=== PATIENT | female | born 1990 | race African-American/Black ===

== ENCOUNTER 2023-12-23 17:35 | Emergency (ER) | payer OTHER ==
[2023-12-23 20:28] LABS: BILIRUBIN,URINE NEGATIVE (NEGATIVE); GLUCOSE, URINE (UA) NEGATIVE (NEGATIVE); KETONES,URINE (UA) TRACE mg/dL (NEGATIVE); LEUKOCYTE ESTERASE, URINE NEGATIVE (NEGATIVE); NITRITE,URINE NEGATIVE (NEGATIVE); OCCULT BLOOD,URINE NEGATIVE (NEGATIVE); PH,URINE 5.5 PH (5.0-7.5); PROTEIN,URINE NEGATIVE (NEGATIVE); UROBILINOGEN,URINE 0.2 (NORMAL) E.U./dL (NORMAL)
[2023-12-23 20:30] LABS: CLARITY,URINE CLEAR (CLEAR)
[2023-12-23 20:31] LABS: HCG UR QUAL NEGATIVE
[2023-12-23] MEDS: LIDOCAINE PATCH 5% TOP STA (20:32)
[2023-12-23] MEDS: CYCLOBENZAPRINE 10 MG Prepack 2 PO PRN (20:32)
--- NOTE | 2023-12-23 20:38 | ED Physician Documentation ---
PD HPI BACK PAIN - Stated complaint Stated Complaint: R SIDE BACK PX - Chief complaint Chief Complaint: Back Pain - History obtained from History obtained from: Patient - Additional information Additional information: Patient is a 33-year-old female presenting for evaluation of right flank pain that has been present for 1 week. Patient states that she moved in a certain way and then suddenly felt pain in the back. It has worsened. She has been taking tizanidine and ibuprofen and Tylenol without significant improvement after being evaluated at the [facility] a few days ago. 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 It is worse with certain movements. No bowel or bladder incontinence. No numbness or weakness. No pain into the legs. Review of Systems Constitutional: denies: Fever Cardiac: denies: Chest pain / pressure Respiratory: denies: Dyspnea GI: denies: Abdominal Pain Musculoskeletal: reports: Back pain PD PAST MEDICAL HISTORY - Past Medical History Past Medical History: No Cardiovascular: None Respiratory: None Neuro: None Endocrine/Autoimmune: None GI: None RN INVASIVE: None : None HEENT: None Psych: None Musculoskeletal: None Derm: None - Past Surgical History Past Surgical History: Yes Ortho: ACL reconstruction - Present Medications Home Medications: Ambulatory Orders Medication Instructions Recorded Confirmed Cyclobenzaprine [Flexeril] 10 mg PO TID PRN #20 tablet 12/23/23 Lidocaine Patch 5% [Lidoderm Patch] 1 patch TOP DAILY PRN #10 patch 12/23/23 - Allergies Allergies/Adverse Reactions: Allergies Allergy/AdvReac Type Severity Reaction Status Date / Time Penicillins Allergy Hives Verified 12/23/23 17:53 hydrocodone AdvReac Headache Verified 12/23/23 17:53 - Social History Does the pt smoke?: No Smoking Status: Never smoker ETOH Use: Beer - Immunizations Immunizations are current?: Yes PD ED PE NORMAL - General General: Alert and oriented X 3, No acute distress, Well developed/nourished - HEENT HEENT: Atraumatic - Neck Neck: Supple, no meningeal sign - Cardiac Cardiac: RRR, Strong equal pulses - Respiratory Respiratory: No respiratory distress, Clear bilaterally - Abdomen Abdomen: Normal bowel sounds, Soft, Non tender, Non distended - Back Back: No spinal TTP, Other (Right paralumbar tenderness to palpation) - Extremities Extremities: No deformity, Normal ROM s pain, No calf tenderness / cord - Neuro Neuro: Alert and oriented X 3, No motor deficit, No sensory deficit, Normal speech Results - Vitals Vitals: Vital Signs - 24 hr 12/23/23 12/23/23 17:45 20:45 Temperature 36.3 C L 36.5 C Heart Rate 85 82 Respiratory 18 16 Rate Blood Pressure 126/79 124/76 O2 Saturation 97 98 Oxygen O2 Source Room air - Labs Labs: Laboratory Tests 12/23/23 20:23 Urine Color LIGHT YELLOW Urine Clarity CLEAR Urine pH 5.5 Ur Specific [place] >=1.030 H Urine Protein NEGATIVE Urine Glucose (UA) NEGATIVE Urine Ketones TRACE Urine Occult Blood NEGATIVE Urine Nitrite NEGATIVE Urine Bilirubin NEGATIVE Urine Urobilinogen 0.2 (NORMAL) Ur Leukocyte Esterase NEGATIVE Ur Microscopic Review NOT INDICATED Urine Culture Comments NOT INDICATED Urine HCG, Qual NEGATIVE PD Medical Decision Making - ED course ED course: Patient is a 33-year-old female presenting with atraumatic right lower back pain. No radiation to the abdomen. Vital signs are stable. No red flag signs or symptoms in regards to her back pain. She is ambulatory. Urinalysis is negative for blood or signs of infection. She is not . She does have tenderness specifically to a certain area of the back. She has tried tizanidine and anti-inflammatories without improvement. Will switch to a different muscle relaxer and patient is agreeable to trial of cyclobenzaprine with lidocaine patches in addition to the anti-inflammatories. She is counseled on importance of follow-up with the [facility] and has already been referred to physical therapy per patient. Counseled on concerning symptoms to return for. Departure - Departure Disposition: Home, Self Care Clinical Impression: Pain in right lumbar region of back Condition: Stable Instructions: ED Neck Back Pain General Prescriptions: Cyclobenzaprine [Flexeril] 10 mg PO TID PRN #20 tablet PRN Reason: Spasms Lidocaine Patch 5% [Lidoderm Patch] 1 patch TOP DAILY PRN #10 patch PRN Reason: pain Comments: Please stop taking the tizanidine. I have sent a prescription for a different muscle relaxer to [facility] in [place] called Flexeril (cyclobenzaprine). Continue with acetaminophen or ibuprofen as well as lidocaine patches. Your symptoms or not showing any improvement over the next few days and I would recommend close recheck with your PCM at the [facility]. Return to the ER with any worsening symptoms such as fever, pain in a new location or any other concerns. Your urine today does not show signs of infection or blood. Forms: Activity restrictions Discharge Date/Time: 12/23/23 20:45
[2023-12-23 20:52] VITALS: BP 124/76; O2SAT 98
== END 2023-12-23 20:45 | disposition home or self-care (01) ==
LOC: ED 17:35
DX: R10.31 Right lower quadrant pain (principal); M54.50 Low back pain, unspecified
CPT/HCPCS: 81003; 81025; 99283; A9270; 81001; 87086